=== PATIENT | male | born 1945 | race Caucasian/White ===

== ENCOUNTER 2018-05-18 09:25 | Day surgery (SDC) | payer MEDICARE, BC ==
[2018-05-14 14:21] LABS: PRE OP PROTIME 10.5 SECONDS (9.0-12.0)
[2018-05-14 14:26] LABS: BASOPHILS # (AUTO) 0.1 X10'3 (0-0.2); BASOPHILS % (AUTO) 1.1 % (0-1); EOSINOPHILS # (AUTO) 0.3 X10'3 (0-0.9); EOSINOPHILS % (AUTO) 3.2 % (0-6); LYMPHOCYTES # (AUTO) 1.5 X10'3 (1.1-4.8); MEAN CORPUSCULAR HEMOGLOBIN 31.7 PG (27.0-31.0); MEAN CORPUSCULAR HGB CONC 34.5 % (33.0-36.5); MEAN CORPUSCULAR VOLUME 92.1 FL (78-98); MEAN PLATELET VOLUME 7.6 FL (7.4-10.4); MONOCYTES # (AUTO) 0.6 X10'3 (0-0.9); MONOCYTES % (AUTO) 6.4 % (2-12); NEUTROPHILS # (AUTO) 6.9 X10'3 (1.8-7.7); NEUTROPHILS % (AUTO) 73.3 % (42-75); PRE OP HEMATOCRIT 35.7 % (42.0-52.0); PRE OP HEMOGLOBIN 12.3 g/dL (14.0-17.9); PRE OP PLATELET COUNT 429 X10'3 (140-440); RED BLOOD COUNT 3.88 X10'6 (4.70-6.10); RED CELL DISTRIBUTION WIDTH 12.6 % (11.5-14.5)
[2018-05-14 14:31] LABS: ALBUMIN 3.5 G/DL (3.4-5.0); ALBUMIN/GLOBULIN RATIO 0.7 (1.1-1.5); ALKALINE PHOSPHATASE 112 IU/L (46-116); BLOOD UREA NITROGEN 46 MG/DL (7-18); BUN/CREATININE RATIO 13.5 (5.4-32.0); CALCIUM 9.2 MG/DL (8.5-10.1); CHLORIDE 103 MMOL/L (99-107); PRE OP ALT 19 U/L (30-65); PRE OP ANION GAP 10 (8-16); PRE OP AST 8 U/L (10-37); PRE OP BILIRUB, TOTAL 0.2 MG/DL (0.0-1.0); PRE OP GLUCOSE 113 MG/DL (70-104); PRE OP POTASSIUM 4.3 MMOL/L (3.4-5.1); PRE OP SODIUM 138 MMOL/L (135-145); TOTAL PROTEIN 8.2 G/DL (6.4-8.2); eGFR 18 ML/MIN
[~2018-05-18] VITALS: Ht 177.8 cm; Wt 84.9 kg
[2018-05-18] VITALS (17 sets, daily range): BP systolic 131–155; BP diastolic 71–101
[~2018-05-18 09:25] MED LIST: CIPR250T4 PO; DIPH25CA83 PO; IBUP-24 PO; TAMS0.4C32 PO; ceFAZolin inj. 1,000 MG in dextrose 5%-water 50ml 50 ML IV ONE; famotidine 20mg tablet PO ONE
[2018-05-18] MEDS ORDERED: LIDOcaine 1% (10mg/ml) 2ml vial ONE (10:00)
[2018-05-18] MEDS: ringers solution, lacted 1,000 ML IV SCH ×2 (10:07→18:20)
[2018-05-18] MEDS ORDERED: ringers solution, lacted 1,000 ML IV SCH (10:47)
[2018-05-18] MEDS ORDERED: proCHLORperazine 10 MG/2 ml inj IV PRN ×2 (10:50→15:35)
[2018-05-18] MEDS ORDERED: meperidine/PF 25mg/ml syringe IV PRN ×3 (10:50)
[2018-05-18] MEDS ORDERED: ondansetron/PF 4mg/2ml inj IV PRN ×2 (10:50→15:35)
[2018-05-18] MEDS ORDERED: morphine 4 MG/ML inj SYRINge IV PRN ×2 (10:50)
[2018-05-18] MEDS ORDERED: fentaNYL/PF 50MCG/1 ML 2ML syringe ONE (11:49)
[2018-05-18] MEDS ORDERED: MIDAZolam 5mg/5ml vial ONE (11:51)
[2018-05-18] MEDS ORDERED: neomy sulf/polymyxin B sulf. GU irrigation 1ml amp IR ONE (12:10)
[2018-05-18] MEDS ORDERED: iohexol 300 MG/1 ML 10ml vial ONE (13:17)
[2018-05-18] MEDS: ceFAZolin 1GM/D5W- ADD-VANTAGE 50 ML IV SCH ×3 (14:00→23:58)
[2018-05-18] MEDS ORDERED: BUPIVAcaine/dex-water/PF 7.5 mg/ml 2ml ampul ONE (15:26)
[2018-05-18] MEDS ORDERED: HYDROcodone/acetaminophen 10/325mg tab PO PRN (15:35)
[2018-05-18] MEDS ORDERED: zolpidem 5mg tablet PO PRN (15:35)
[2018-05-18] MEDS ORDERED: mag hydrox/Alum hydrox/simeth 30ml oral suspension PO PRN (15:35)
[2018-05-18] MEDS ORDERED: acetaminophen 325mg tablet PO PRN (15:35)
[2018-05-18] MEDS ORDERED: oxybutynin 5mg tablet PO PRN (15:35)
[2018-05-18] MEDS ORDERED: opium/belladonna alkaloids No. 15A 30mg rectal suppository RC PRN (15:35)
[2018-05-18] MEDS ORDERED: ceFAZolin inj. 1,000 MG in dextrose 5%-water 50ml 50 ML IV SCH (16:00)
[2018-05-18 16:31] LABS: BASOPHILS # (AUTO) 0.1 X10'3 (0-0.2); BASOPHILS % (AUTO) 1.3 % (0-1); EOSINOPHILS # (AUTO) 0.2 X10'3 (0-0.9); EOSINOPHILS % (AUTO) 2.7 % (0-6); HEMATOCRIT 33.1 % (42.0-52.0); HEMOGLOBIN 11.4 g/dl (14.0-17.9); LYMPHOCYTES # (AUTO) 1.4 X10'3 (1.1-4.8); LYMPHOCYTES % (AUTO) 18.2 % (21-51); MEAN CORPUSCULAR HEMOGLOBIN 31.7 PG (27.0-31.0); MEAN CORPUSCULAR HGB CONC 34.5 % (33.0-36.5); MEAN CORPUSCULAR VOLUME 91.9 FL (78-98); MEAN PLATELET VOLUME 7.3 FL (7.4-10.4); MONOCYTES # (AUTO) 0.5 X10'3 (0-0.9); MONOCYTES % (AUTO) 5.9 % (2-12); NEUTROPHILS # (AUTO) 5.7 X10'3 (1.8-7.7); NEUTROPHILS % (AUTO) 71.9 % (42-75); PLATELET COUNT 346 X10'3 (140-440); RED CELL DISTRIBUTION WIDTH 12.2 % (11.5-14.5); WHITE BLOOD COUNT 7.9 X10'3 (4.5-11.0)
[2018-05-18 16:40] LABS: ALBUMIN 2.9 G/DL (3.4-5.0); ANION GAP 6 (8-16); BLOOD UREA NITROGEN 42 MG/DL (7-18); CALCIUM 8.5 MG/DL (8.5-10.1); CHLORIDE 109 MMOL/L (99-107); CREATININE 3.22 MG/DL (0.60-1.10); GLUCOSE 104 MG/DL (70-104); POTASSIUM 4.6 MMOL/L (3.5-5.1); SODIUM 141 MMOL/L (135-145); eGFR 19 ML/MIN
[2018-05-18] MEDS: potassium cl 20mEq in 1/2 NS 1,000 ML IV SCH ×2 (18:27→23:32)
[2018-05-18] MEDS: docusate sod 100mg capsule PO SCH (19:32)
[2018-05-18] MEDS: tamsulosin 0.4mg capsule PO SCH (19:32)
[2018-05-19] VITALS: BP 132/72
[2018-05-19] MEDS: potassium cl 20mEq in 1/2 NS 1,000 ML IV SCH (03:17)
[2018-05-19 03:21] VITALS: BP 127/70
[2018-05-19 06:21] LABS: BASOPHILS % (AUTO) 0.4 % (0-1); EOSINOPHILS # (AUTO) 0.5 X10'3 (0-0.9); EOSINOPHILS % (AUTO) 4.8 % (0-6); HEMATOCRIT 33.7 % (42.0-52.0); HEMOGLOBIN 11.7 g/dl (14.0-17.9); LYMPHOCYTES # (AUTO) 1.5 X10'3 (1.1-4.8); LYMPHOCYTES % (AUTO) 15.9 % (21-51); MEAN CORPUSCULAR HEMOGLOBIN 31.2 PG (27.0-31.0); MEAN CORPUSCULAR HGB CONC 34.7 % (33.0-36.5); MEAN PLATELET VOLUME 7.7 FL (7.4-10.4); MONOCYTES # (AUTO) 0.6 X10'3 (0-0.9); MONOCYTES % (AUTO) 6.2 % (2-12); NEUTROPHILS # (AUTO) 6.9 X10'3 (1.8-7.7); NEUTROPHILS % (AUTO) 72.7 % (42-75); PLATELET COUNT 353 X10'3 (140-440); RED BLOOD COUNT 3.74 X10'6 (4.70-6.10); RED CELL DISTRIBUTION WIDTH 12.4 % (11.5-14.5); WHITE BLOOD COUNT 9.5 X10'3 (4.5-11.0)
[2018-05-19 06:28] LABS: ALBUMIN 2.6 G/DL (3.4-5.0); ANION GAP 9 (8-16); BLOOD UREA NITROGEN 41 MG/DL (7-18); BUN/CREATININE RATIO 13.1 (5.4-32.0); CALCIUM 8.4 MG/DL (8.5-10.1); CHLORIDE 108 MMOL/L (99-107); CREATININE 3.12 MG/DL (0.60-1.10); GLUCOSE 108 MG/DL (70-104); POTASSIUM 4.7 MMOL/L (3.5-5.1); SODIUM 139 MMOL/L (135-145); eGFR 20 ML/MIN
[2018-05-19] MEDS: tamsulosin 0.4mg capsule PO SCH (07:19)
[2018-05-19] MEDS: docusate sod 100mg capsule PO SCH (07:19)
[2018-05-19] MEDS ORDERED: pantoprazole 40mg Tablet.DR PO SCH (07:30)
[2018-05-19 08:00] VITALS: BP 116/76
[2018-05-19] MEDS ORDERED: DOCU-28 PO (08:12)
[2018-05-19] MEDS ORDERED: CIPR250T4 PO (08:12)
[2018-05-19 11:29] VITALS: BP 125/87
== END 2018-05-19 12:09 | disposition home or self-care (01) ==
LOC: PAS 09:25 → SUR 3N 16:34 → PAS 05-19 12:09
PROVIDERS: ATTEND Urology
DX: N13.5 Crossing vessel and stricture of ureter without hydronephrosis (principal); N40.1 Benign prostatic hyperplasia with lower urinary tract symptoms; N32.0 Bladder-neck obstruction; I10 Essential (primary) hypertension; Z79.2 Long term (current) use of antibiotics; Z72.89 Other problems related to lifestyle; Z95.828 Presence of other vascular implants and grafts; Z87.442 Personal history of urinary calculi; Z79.899 Other long term (current) drug therapy; Z98.890 Other specified postprocedural states
CPT/HCPCS: 36415; 52332; 52601; 76000; 80048; 80053; 85025; 85610; 85730; 86885; 86900; 86901; 93005; A4346; A4615; C1758; C1769; C2617; C2625; J0690; J2250; J3010; J3490; J7030; J7060; J7120; Q9967; 88305; A4402